=== PATIENT | male | born 1990 | race Two or more races ===

== ENCOUNTER 2022-12-01 16:16 | Emergency (ER) | payer SELFPAY ==
[2022-12-01 16:22] VITALS: BP 106/61; PULSE 69; RESP 16; TEMP 36.4; O2SAT 96; BMI 28.8
[2022-12-01 16:26] VITALS: PULSE 62; O2SAT 97
--- NOTE | 2022-12-01 16:30 | W.ED.BACK ---
Documented by User: [email or web address] Lazcano 12/02/22 07:00 HPI - Back Pain/Injury General: Chief Complaint: Back Pain/Injury Stated Complaint: lower back pain Time Seen by Provider: 12/01/22 16:28 Source: patient Mode of arrival: wheelchair Limitations: no limitations History of Present Illness: Patient is a 32-year-old male who presents to ED today along with his fianc?e who does most of patient's [place] interpretation here for concerns of lower back pain. 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 Fianc? states since that time he has had pain to his lower back radiating down into his left buttock and hip. Pain seems to be worse with lifting, bending, and ambulation. Patient denies numbness, tingling, loss of sensation to his extremities. He denies saddle anesthesia. He denies bowel/bladder incontinence/retention. MD elicited complaint: back pain and back injury Onset (ago): week(s) Timing: constant Severity: severe Pain scale (0-10): 8 Similar Symptoms Previously: No Quality: sharp Location: lumbar spine and left lower back Radiation: buttocks Exacerbating factors: movement, walking and lifting Relieving factors: immobilization Associated symptoms: Reports no associated symptoms and difficulty walking (secondary to pain/discomfort); Deny dysuria, fever(s) or hematuria Work related injury: Yes Review of Systems Const: Denies: fever(s) Card: Denies: chest pain Resp: Denies: dyspnea : Denies: flank pain, dysuria or hematuria Musc: Reports: back pain; Denies: neck pain, extremity pain, extremity swelling, joint swelling, joint redness or joint warmth Skin/Breast: Denies: rash Neuro: Reports: difficulty walking (secondary to pain/discomfort); Denies: numbness in extremities, weakness in extremities or sensory changes Physical Exam Const: COMMON NORMALS: no acute distress, average body habitus, no limitations, healthy appearing, alert and well nourished EXAM LIMITATIONS: language barrier (fianc? interprets) GENERAL APPEARANCE: cooperative ORIENTATION/CONSCIOUSNESS: Yes awake, Yes oriented to person, Yes oriented to place and Yes oriented to time GI: COMMON NORMALS: Normal to inspection, nondistended, normoactive bowel sounds present, Soft to palpation, non-tender and no masses PALPATION: Yes Soft to palpation : COMMON NORMALS: Yes no CVA tenderness BLADDER/KIDNEY EXAM: Yes no CVA tenderness Back/Pelvis: COMMON NORMALS: no CVA tenderness THORACIC SPINE/UPPER BACK: Yes normal to inspection, No thoracic spinal tenderness and No paraspinal muscle tenderness LUMBAR SPINE/LOWER BACK: Yes pain with ROM, Yes lumbar spinal tenderness, Yes paraspinal muscle tenderness and No paraspinal muscle spasm PELVIS: Yes buttock abnormal Buttock abnormal laterality: left Left buttock abnormal details: tenderness and Yes sciatic notch tenderness on the left SACROILIAC JOINTS: Yes SI joint(s) abnormal SI joint details: tender to palpation (left) SACRUM: no tenderness COCCYX: no tenderness BACK IMAGE (MALE): 1. TTP Extremity: COMMON NORMALS: full ROM, capillary refill normal, no joint enlargement and no calf tenderness GENERAL: Yes normal exam except as noted Neuro: COMMON NORMALS: moves all extremities, no focal motor deficits and no sensory deficits noted SENSORIUM/ORIENTATION: Yes alert, Yes oriented to person, Yes oriented to place and Yes oriented to time GAIT: Yes Unable to assess gait Skin: COMMON NORMALS: no rashes or lesions noted GENERAL SKIN EXAM: no rashes or lesions noted Course Vital Signs: Vital signs: Vital Signs Temperature 97.5 F L 12/01/22 16:22 Pulse Rate 62 12/01/22 16:26 Respiratory Rate 16 12/01/22 16:22 Blood Pressure 106/61 12/01/22 16:22 Pulse Oximetry 97 12/01/22 16:26 Oxygen Delivery Me thod 12/01/22 16:26 Discharge Plan Discharge Patient Disposition: Home Clinical Impression: Strain of lumbar region Condition: Stable Prescriptions: New diclofenac sodium 75 mg tablet,delayed release (DR/EC) 75 mg PO BID Qty: 20 0RF methocarbamol 750 mg tablet 750 mg PO Q8H PRN (Reason: back pain, muscle spasm) Qty: 21 0RF Discharge Orders: Discharge ED (Routine); Ordered 12/01/22 Ordered By: Santi Conroy Patient Instructions: Low Back Strain (ED) Activity Restrictions/Additional Instructions: Activity as tolerated. Gentle stretching and range of motion exercises. Drink plenty of water with medication. Follow-up with primary care for further instruction. Return to ED for new concerns. Use acetaminophen for further pain relief, use diclofenac routinely for pain and inflammation, use methocarbamol for severe pain or muscle spasms. Stand Alone Forms: Work/School Release Sign Out Sign Out Data: Patient Sign Out occurred on 12/01/22 at 17:07. Patient's care was discussed, and care was transferred from to Santi Conroy. Coding Level of Care Code ED Prize Jacker for Chg Fwd Exam Detailed Documented by User: [email or web address] Haynes 12/01/22 17:55 HPI - Back Pain/Injury General: Chief Complaint: Back Pain/Injury Stated Complaint: lower back pain Time Seen by Provider: 12/01/22 16:28 Physical Exam Back/Pelvis: BACK IMAGE (MALE): 1. TTP Course Vital Signs: Vital signs: Vital Signs Temperature 97.5 F L 12/01/22 16:22 Pulse Rate 62 12/01/22 16:26 Respiratory Rate 16 12/01/22 16:22 Blood Pressure 106/61 12/01/22 16:22 Pulse Oximetry 97 12/01/22 16:26 Oxygen Delivery Me thod 12/01/22 16:26 MDM - Back Pain/Injury Medical Decision Making 32-year-old male patient comes in today with pain to the left lower back from injury 2 to 3 weeks ago after lifting trusses. Patient reports pain is worse with movement and lifting. Patient appears nontoxic. Patient appears in no acute distress. Differential diagnosis includes intervertebral disc disease, facet arthropathy, lumbar strain. Patient was medicated with Toradol 60 mg, 60 mg orphenadrine, and 8 mg of dexamethasone. Patient had relief in pain. He will be continued on diclofenac and methocarbamol at home. Patient was advised and reported understanding through drug abuse resistance education officer. Discharge Plan Discharge Patient Disposition: Home Clinical Impression: Strain of lumbar region Condition: Stable Prescriptions: New diclofenac sodium 75 mg tablet,delayed release (DR/EC) 75 mg PO BID Qty: 20 0RF methocarbamol 750 mg tablet 750 mg PO Q8H PRN (Reason: back pain, muscle spasm) Qty: 21 0RF Discharge Orders: Discharge ED (Routine); Ordered 12/01/22 Ordered By: Santi Conroy Patient Instructions: Low Back Strain (ED) Activity Restrictions/Additional Instructions: Activity as tolerated. Gentle stretching and range of motion exercises. Drink plenty of water with medication. Follow-up with primary care for further instruction. Return to ED for new concerns. Use acetaminophen for further pain relief, use diclofenac routinely for pain and inflammation, use methocarbamol for severe pain or muscle spasms. Stand Alone Forms: Work/School Release Sign Out Sign Out Data: Patient Sign Out occurred on 12/01/22 at 17:07. Patient's care was discussed, and care was transferred from to Santi Conroy. Coding Level of Care Code ED Prize Jacker for [place] Fwd Exam Detailed
[2022-12-01] MEDS: dexamethasone 10 mg/mL INJ 8 MG IM (16:51)
[2022-12-01] MEDS: orphenadrine 30 mg/mL Inj 2 mL 60 MG IM (16:51)
[2022-12-01] MEDS: ketorolac 60 mg/2 mL INJ IM (16:51)
== END 2022-12-01 18:10 | disposition home or self-care (01) ==
PROVIDERS: Emergency Provider Nurse Practitioner Family
DX: S39.012A Strain of muscle, fascia and tendon of lower back, initial encounter (principal); X50.0XXA Overexertion from strenuous movement or load, initial encounter; Y99.0 Civilian activity done for income or pay
CPT/HCPCS: 96372; 99284; J1100; J1885; J2360

== ENCOUNTER 2023-04-24 10:13 | Emergency (ER) | payer SELFPAY ==
[2023-04-24 10:19] VITALS: BP 115/56; PULSE 76; RESP 18; TEMP 36.9; O2SAT 99
--- NOTE | 2023-04-24 10:28 | ED_ITS ---
HPI - Back Pain/Injury General: Chief Complaint: Back Pain/Injury Stated Complaint: Lower back pain Time Seen by Provider: 04/24/23 10:18 History of Present Illness: Patient is a 32-year-old male who comes to the ED with lower back pain. Patient speaks Yi but has a friend here in the ED with him who is in interpreting. Patient has been having lower back pain for a while and was seen here back on December 01 for same complaint. Patient says he has a job where he does a lot of lifting. He is having pain in his lower back that has gotten worse over the past 2 weeks. Pain radiates down into left thigh and he describes the pain that radiates down into his left leg is an electric type pain. Denies any fall or trauma to cause low back pain. Denies any cauda equina symptoms. Associated symptoms: Deny abdominal pain, chills, dysuria, fatigue, fever(s), hematuria, nausea or vomiting Review of Systems Const: Denies: fever(s), chills or fatigue Eyes: Denies: change in vision or eye discomfort ENMT: Denies: throat pain, odynophagia, nasal discharge or nasal congestion Card: Denies: chest pain, palpitations, edema, swelling of feet/ankles, dyspnea on exertion or orthopnea Resp: Denies: dyspnea, productive cough or non-productive cough GI: Denies: abdominal pain, nausea, vomiting, diarrhea, constipation or hematochezia : Denies: flank pain, difficulty urinating, dysuria or hematuria Musc: Reports: back pain; Denies: neck pain or extremity swelling Skin/Breast: Denies: rash or new lesions Neuro: Denies: headache(s), numbness in extremities or weakness in extremities PFS ED PFSH: Medical History No pertinent family history Surgical History No pertinent past surgical history Physical Exam Const: COMMON NORMALS: no acute distress, patient oriented x3 and alert HENMT: COMMON NORMALS: normocephalic HEAD & SCALP: normocephalic MOUTH: Normal oral and palatal mucosa present THROAT: posterior oropharynx normal and uvula midline Neck/C-Spine: COMMON NORMALS: supple GENERAL: Yes normal visual inspection Resp: COMMON NORMALS: normal respiratory effort, No retractions, No use of accessory muscles and clear to auscultation bilaterally AUSCULTATION: clear to auscultation bilaterally Cardio: COMMON NORMALS: regular rate, regular rhythm, S1 normal heart sound present, S2 normal heart sound present, No gallops present (Cardio), No clicks present (Cardio), No murmurs present (Cardio) and Peripheral pulses 2+ throughout RATE: regular rate RHYTHM: regular rhythm HEART SOUNDS: S1 normal heart sound present and S2 normal heart sound present PERIPHERAL PULSES: Peripheral pulses 2+ throughout GI: COMMON NORMALS: Normal to inspection, nondistended, normoactive bowel sounds present, Soft to palpation, non-tender and no masses PALPATION: Yes Soft to palpation : COMMON NORMALS: Yes no CVA tenderness BLADDER/KIDNEY EXAM: Yes no CVA tenderness Back/Pelvis: COMMON NORMALS: no CVA tenderness LUMBAR SPINE/LOWER BACK: Yes pain with ROM, Yes paraspinal muscle tenderness Lumbar paraspinal muscle tenderness: left left lumbar paraspinal muscle tenderness: L3, L4 and L5 and Yes straight leg raise positive left Straight leg raise positive details left: at 40 degrees Extremity: COMMON NORMALS: normal to inspection Neuro: COMMON NORMALS: patient oriented x3 SENSORIUM/ORIENTATION: Yes alert GAIT: Yes Normal gait present Skin: GENERAL SKIN EXAM: dry skin Course Vital Signs: Vital signs: Vital Signs Temperature 98.4 F 04/24/23 10:19 Pulse Rate 74 04/24/23 11:05 Respiratory Rate 18 04/24/23 11:05 Blood Pressure 116/75 04/24/23 11:05 Pulse Oximetry 99 04/24/23 11:05 Oxygen Delivery Me thod Room Air 04/24/23 10:19 MDM - Back Pain/Injury Medical Decision Making Patient is a 32-year-old male who comes to the ED with lower back pain. Patient speaks Y[place] but has a friend here in the ED with him who is in interpreting. Patient has been having lower back pain for a while and was seen here back on December 01 for same complaint. Patient says he has a job where he does a lot of lifting. He is having pain in his lower back that has gotten worse over the past 2 weeks. Pain radiates down into left thigh and he describes the pain that radiates down into his left leg is an electric type pain. Denies any fall or trauma to cause low back pain. Denies any cauda equina symptoms. Vitals are stable. Patient appears nontoxic in no acute distress or pain. L3, L4 and L5 lumbar paraspinal muscle tenderness especially on the left side. Patient also has positive left straight leg raise. Patient diagnosed lumbar radiculopathy and was given a dose of Toradol, hydrocodone, Decadron, muscle relaxer and hydrocodone. He was stable for discharge home and sent home with a prescription for an NSAID, muscle relaxer and Medrol Dosepak. Told to follow-up with his PCP in the next week for reevaluation. Return to ED precautions given. Patient understood and agreed with plan Discharge Plan Discharge Patient Disposition: Home Clinical Impression: Lumbar radiculopathy Condition: Stable Prescriptions: New diclofenac sodium 75 mg tablet,delayed release (DR/EC) 75 mg PO BID PRN (Reason: pain) Qty: 20 0RF cyclobenzaprine 10 mg tablet 10 mg PO BID PRN (Reason: muscle spasm) Qty: 20 0RF Medrol (Neil) 4 mg tablets,dose pack See Rx Instructions .ROUTE .COMPLEX Qty: 21 0RF Rx Instructions: orally per package directions No Action diclofenac sodium 75 mg tablet,delayed release (DR/EC) 75 mg PO BID Qty: 20 0RF methocarbamol 750 mg tablet 750 mg PO Q8H PRN (Reason: back pain, muscle spasm) Qty: 21 0RF Discharge Orders: Discharge ED (Routine); Ordered 04/24/23 Ordered By: Yoan Roy Discharge Diet: Regular Discharge Activity: Increase activity as tolerated Patient Instructions: Lumbar Radiculopathy (ED) Activity Restrictions/Additional Instructions: Follow-up with medical provider as directed. Take medications as prescribed. Return to the ER or your medical provider if condition worsens. Please read and understand discharge instructions. Thank you for choosing [facility] for your healthcare needs today. Please realize this is an emergency room and that we are providing you with a medical screening exam and this may not be complete and all inclusive of all the testing and or work up that you may need to determine your ailment or severity of your illness. It is very important that you follow up as instructed or that you return to the Emergency Department should you have concerns or if your condition changes or worsens in any way. Stand Alone Forms: Work/School Release Coding Level of Care Code ED Computer Network Support Specialist for [place]
[2023-04-24] MEDS: ketorolac 30 mg/mL INJ 60 MG IM (10:36)
[2023-04-24] MEDS: dexamethasone 10 mg/mL INJ IM (10:36)
[2023-04-24] MEDS: HYDROcodone-acetaminophen 5-325 mg Tablet 2 TAB PO (10:37)
[2023-04-24] MEDS: tizanidine 4 mg Tablet PO (10:38)
[2023-04-24 11:05] VITALS: BP 116/75; PULSE 74; RESP 18; O2SAT 99
== END 2023-04-24 11:06 | disposition home or self-care (01) ==
PROVIDERS: Emergency Provider Physician Assistant
DX: M54.16 Radiculopathy, lumbar region (principal)
CPT/HCPCS: 96372; 99284; J1100; J1885